=== PATIENT | female | born 1965 | race Caucasian/White ===

== ENCOUNTER 2017-08-20 09:19 | Emergency (ER) | payer BC ==
[2017-08-20 09:23] VITALS: BP 135/68; PULSE 87; RESP 20; TEMP 97.5
--- NOTE | 2017-08-20 09:45 | XR ---
EXAMINATION TYPE: XR elbow complete RT DATE OF EXAM: 08/20/2017 COMPARISON: NONE HISTORY: 51-year-old female with pain after fall TECHNIQUE: 3 views FINDINGS: There is very minimal cortical irregularity along the dorsal and radial aspect of the radial neck. Roberts ggests elevation of the anterior fat pad of elbow. No additional acute fracture or dislocation seen. IMPRESSION: 1. Suspicious for a subtle nondisplaced radial neck fracture. 2. Anterior elbow joint effusion.
--- NOTE | 2017-08-20 10:13 | ED ---
General Adult HPI - General Chief complaint: Extremity Injury, Upper Stated complaint: Arm injury Time Seen by Provider: 08/20/17 09:24 Source: patient, RN notes reviewed Mode of arrival: ambulatory Limitations: no limitations - History of Present Illness Initial comments: 51-year-old female presents to the emergency department with a chief complaint of right elbow pain after a fall on the ice yesterday. She states every time she twisted her right arm she notices the discomfort. Patient states she hasn' t had any head injury with this. She states that she keeps the arm still she is feeling much better. Patient was concerned due to her continued symptoms so she thought that she should be evaluated. No history of elbow injury past. Patient denies any recent fever, chills, shortness of breath, chest pain, back pain, abdominal pain, nausea vomiting, numbness or tingling, dysuria or hematuria, constipation or diarrhea, headaches or visual changes, or any other current symptoms. - Related Data Home Medications Medication Instructions Recorded Confirmed Ibuprofen [Motrin] 800 mg PO Q6HR PRN 08/20/17 08/20/17 Rizatriptan Benzoate [Maxalt] 10 mg PO DAILY PRN 08/20/17 08/20/17 Topiramate [Topamax] 50 mg PO DAILY 08/20/17 08/20/17 Allergies Allergy/AdvReac Type Severity Reaction Status Date / Time gatifloxacin [From Tequin] Allergy Unknown Verified 08/20/17 09:41 Review of Systems ROS Statement: Those systems with pertinent positive or pertinent negative responses have been documented in the HPI. ROS Other: All systems not noted in ROS Statement are negative. Past Medical History Additional Past Medical History / Comment(s): migraines History of Any Multi-Drug Resistant Organisms: None Reported Past Surgical History: No Surgical Hx Reported Past Psychological History: No Psychological Hx Reported Smoking Status: Never smoker Past Alcohol Use History: Occasional Past Drug Use History: None Reported General Exam - General Exam Comments Initial Comments: General: The patient is awake and alert, in no distress, and does not appear acutely ill. Neck: The neck is supple, there is no tenderness. Cardiovascular: There is a regular rate and rhythm. No murmur, rub or gallop is appreciated. Respiratory: Lungs are clear to auscultation, respirations are non-labored, breath sounds are equal. No wheezes, stridor, rales, or rhonchi. Musculoskeletal: Sensation intact with 2+ pulses throughout the right upper x- ray. Fund motion of right shoulder. Patient has full range motion of right elbow with pain on supination and pronation. No point bony tenderness noted. Full range of motion of the right wrist. No ecchymosis no skin trauma. Neurological: CN II-XII intact, There are no obvious motor or sensory deficits. Coordination appears grossly intact. Speech is normal. Skin: Skin is warm and dry and no rashes or lesions are noted. Psychiatric: Normal mood and affect. Limitations: no limitations Course Vital Signs 08/20/17 09:21 Temperature 97.5 F L Pulse Rate 87 Respiratory 20 Rate Blood Pressure 135/68 O2 Sat by Pulse 99 Oximetry Procedures - Orthopedic Splinting/Casting Injury #1 Side: right Upper Extremity Injury Location: elbow Upper Extremity Immobilizer: sling/shoulder immobilizer, posterior splint Medical Decision Making - Medical Decision Making 51-year-old female presents for concern for possible radial head fracture. This time she was placed in splint. We give her follow-up dorsal. We discussed return parameters and care and all questions. Patient stated that she understood and she is agreement this plan. All questions have been answered. She will be discharged. - Radiology Data Radiology results: report reviewed, image reviewed Disposition Clinical Impression: Radial head fracture Disposition: HOME SELF-CARE Condition: Stable Instructions: Arm Fracture in Adults (ED) Additional Instructions: Please use medication as discussed. Please follow up with family doctor if symptoms have not improved over the next two days. Please return to the emergency room if your symptoms increase or worsen or for any other concerns. Referrals: Ai White MD [Primary Care Provider] - 1-2 days Russell Hamm DO [Doctor of Osteopathic Medicine] - 1-2 days Time of Disposition: 10:12
== END 2017-08-20 10:24 | disposition home or self-care (01) ==
LOC: EC 09:19
DX: S52.121A Displaced fracture of head of right radius, initial encounter for closed fracture (principal); Z86.69 Personal history of other diseases of the nervous system and sense organs; Z79.899 Other long term (current) drug therapy; Z88.1 Allergy status to other antibiotic agents; W00.0XXA Fall on same level due to ice and snow, initial encounter
CPT/HCPCS: 29105; 99283

== ENCOUNTER 2019-12-16 13:21 | Observation (INO) | payer BC ==
[2019-12-16] MEDS ORDERED: SODIUM CHLORIDE 0.9% 500 ML 500 ML IV ONE (13:44)
[2019-12-16] MEDS ORDERED: SODIUM CHLORIDE 0.9% 1,000 ML IV ONE (13:44)
[2019-12-16 14:16] LABS: Basophils % (A) 0 %; Eosinophils # (A) 0.1 k/uL (0-0.7); Eosinophils % (A) 1 %; HCT 24.6 % (34.0-46.0); HGB 7.8 gm/dL (11.4-16.0); Hypochromasia Slight; Lymphocytes # (A) 2.3 k/uL (1.0-4.8); Lymphocytes % (A) 24 %; MCH 27.2 pg (25.0-35.0); MCHC 31.8 g/dL (31.0-37.0); MCV 85.5 fL (80.0-100.0); Mean Platelet Volume 7.6; Monocytes # (A) 0.3 k/uL (0-1.0); Monocytes % (A) 4 %; Neutrophils # (A) 6.6 k/uL (1.3-7.7); Neutrophils % (A) 70 %; Platelet Count 304 k/uL (150-450); Poikilocytosis Slight; RBC 2.88 m/uL (3.80-5.40); RDW 13.8 % (11.5-15.5); WBC 9.5 k/uL (3.8-10.6)
--- NOTE | 2019-12-16 14:21 | ED ---
Female Urogenital HPI - General Chief complaint: Vaginal Bleeding Stated complaint: ANEMIA Time Seen by Provider: 12/16/19 13:44 Source: patient, family Mode of arrival: ambulatory Limitations: no limitations - History of Present Illness Initial comments: 54-year-old female presenting today for chief complaint of vaginal bleeding 6 weeks. Patient states that she had on-and-off bleeding. Past 6 weeks she stated then more persistent for the past few days. Patient states that she is now bleeding through around 4 pads an hour. Patient states she does experience menorrhagia in the past however it stopped spontaneously however she was advised by her [employer] that she may have to have an ablation. Patient states she has not had vaginal bleeding and in over a year. She states she thought she was postmenopausal. Patient denies any associated pain. Patient does admit to chills palpitation or presyncope pallor of her skin and shortness of breath on exertion. Patient was concerned that she had low hemoglobin. And thus presents emergency department. Patient denies any additional complaints denies any chest pain, nausea, vomiting, vaginal discharge. Patient on arrival pt HR elevated, 130s in triage, 109 while taking history. - Related Data Home Medications Medication Instructions Recorded Confirmed Ibuprofen [Motrin] 800 mg PO Q6HR PRN 08/20/17 08/20/17 Rizatriptan Benzoate [Maxalt] 10 mg PO DAILY PRN 08/20/17 08/20/17 Topiramate [Topamax] 50 mg PO DAILY 08/20/17 08/20/17 Allergies Allergy/AdvReac Type Severity Reaction Status Date / Time gatifloxacin [From Tequin] Allergy Unknown Verified 08/20/17 09:41 Review of Systems ROS Statement: Those systems with pertinent positive or pertinent negative responses have been documented in the HPI. ROS Other: All systems not noted in ROS Statement are negative. Past Medical History Additional Past Medical History / Comment(s): migraines History of Any Multi-Drug Resistant Organisms: None Reported Past Surgical History: No Surgical Hx Reported Past Psychological History: No Psychological Hx Reported Smoking Status: Never smoker Past Alcohol Use History: Occasional Past Drug Use History: None Reported General Exam - General Exam Comments Initial Comments: General: The patient is awake and alert, in no distress Eye: +3 mm pupils are equal, round and reactive to light, extra-ocular movements are intact. No nystagmus. There is normal conjunctiva bilaterally. No signs of icterus. Ears, nose, mouth and throat: There are moist mucous membranes and no oral lesions. Pallor to mucosa of mouth, eyelids Neck: The neck is supple, there is no tenderness or JVD. Cardiovascular: There is a regular rate and rhythm. No murmur, rub or gallop is appreciated. Respiratory: Lungs are clear to auscultation, respirations are non-labored, breath sounds are equal. No wheezes, stridor, rales, or rhonchi. Gastrointestinal: Soft, non-distended, non-tender abdomen without masses or organomegaly noted. There is no rebound or guarding present. Pelvic: mild-moderate dark red blood in vault--no pain. No external lesions, small clots. Musculoskeletal: Normal ROM, no tenderness. Strength 5/5. Sensation intact. Radial pulses equal bilaterally 2+. Neurological: A&O x 3. CN II-XII intact grossly, There are no obvious motor or sensory deficits. Coordination appears grossly intact. Speech is normal. Skin: Skin is warm and dry and no rashes or lesions are noted. Psychiatric: Cooperative, appropriate mood & affect, normal judgment. Limitations: no limitations Course Vital Signs 12/16/19 12/16/19 12/16/19 13:37 14:21 16:22 Temperature 97.8 F Pulse Rate 134 H 101 H Pulse Rate [ 100 Sitting Cook Barbecue] Pulse Rate [ 120 H Standing Cook Barbecue ] Pulse Rate [ 96 Supine Cook Barbecue] Respiratory 18 18 Rate Blood Pressure 133/78 141/74 Blood Pressure 116/67 [Right Arm Sitting] Blood Pressure 114/68 [Right Arm Standing] Blood Pressure 107/58 [Right Arm Supine] O2 Sat by Pulse 100 Oximetry Medical Decision Making - Medical Decision Making 54-year-old female presenting for vaginal bleeding what appears to be consistent with symptomatic anemia. Consult to Gill. He recommended admission q6h CBC, will hold blood products for now. Pt on telemetry. BP stable. Bleeding slowing on PE. Patient agreeable to admission and care plan. - Lab Data Result diagrams: 12/16/19 14:04 12/16/19 14:04 Lab Results 12/16/19 12/16/19 12/16/19 Range/Units 14:04 14:04 14:04 WBC 9.5 (3.8-10.6) k/uL RBC 2.88 L (3.80-5.40) m/uL Hgb 7.8 L (11.4-16.0) gm/dL Hct 24.6 L (34.0-46.0) % MCV 85.5 (80.0-100.0) fL MCH 27.2 (25.0-35.0) pg MCHC 31.8 (31.0-37.0) g/dL RDW 13.8 (11.5-15.5) % Plt Count 304 (150-450) k/uL Neutrophils % 70 % Lymphocytes % 24 % Monocytes % 4 % Eosinophils % 1 % Basophils % 0 % Neutrophils # 6.6 (1.3-7.7) k/uL Lymphocytes # 2.3 (1.0-4.8) k/uL Monocytes # 0.3 (0-1.0) k/uL Eosinophils # 0.1 (0-0.7) k/uL Basophils # 0.0 (0-0.2) k/uL Hypochromasia Slight Poikilocytosis Slight Sodium 137 (137-145) mmol/L Potassium 3.3 L (3.5-5.1) mmol/L Chloride 105 (98-107) mmol/L Carbon Dioxide 22 (22-30) mmol/L Anion Gap 10 mmol/L BUN 14 (7-17) mg/dL Creatinine 0.72 (0.52-1.04) mg/dL Est GFR (CKD-EPI)AfAm >90 (>60 ml/min/1.73 sqM) Est GFR (CKD-EPI)NonAf >90 (>60 ml/min/1.73 sqM) Glucose 105 H (74-99) mg/dL Calcium 8.7 (8.4-10.2) mg/dL Total Bilirubin 0.2 (0.2-1.3) mg/dL AST 22 (14-36) U/L ALT 13 (4-34) U/L Alkaline Phosphatase 61 (38-126) U/L Total Protein 7.1 (6.3-8.2) g/dL Albumin 4.3 (3.5-5.0) g/dL Urine Color Urine Appearance (Clear) Urine pH (5.0-8.0) Ur Specific [place] (1.001-1.035) Urine Protein (Negative) Urine Glucose (UA) (Negative) Urine Ketones (Negative) Urine Blood (Negative) Urine Nitrite (Negative) Urine Bilirubin (Negative) Urine Urobilinogen (<2.0) mg/dL Ur Leukocyte Esterase (Negative) Urine RBC (0-5) /hpf Urine WBC (0-5) /hpf Ur Squamous Epith Cells (0-4) /hpf Urine Mucus (None) /hpf Urine HCG, Qual (Not Detectd) Blood Type O Positive Blood Type Recheck O Pos Bld Type Recheck Status No Antibody Screen NEGATIVE Spec Expiration Date 12/19/2019230312/16/19 12/16/19 Range/Units 15:05 15:05 WBC (3.8-10.6) k/uL RBC (3.80-5.40) m/uL Hgb (11.4-16.0) gm/dL Hct (34.0-46.0) % MCV (80.0-100.0) fL MCH (25.0-35.0) pg MCHC (31.0-37.0) g/dL RDW (11.5-15.5) % Plt Count (150-450) k/uL Neutrophils % % Lymphocytes % % Monocytes % % Eosinophils % % Basophils % % Neutrophils # (1.3-7.7) k/uL Lymphocytes # (1.0-4.8) k/uL Monocytes # (0-1.0) k/uL Eosinophils # (0-0.7) k/uL Basophils # (0-0.2) k/uL Hypochromasia Poikilocytosis Sodium (137-145) mmol/L Potassium (3.5-5.1) mmol/L Chloride (98-107) mmol/L Carbon Dioxide (22-30) mmol/L Anion Gap mmol/L BUN (7-17) mg/dL Creatinine (0.52-1.04) mg/dL Est GFR (CKD-EPI)AfAm (>60 ml/min/1.73 sqM) Est GFR (CKD-EPI)NonAf (>60 ml/min/1.73 sqM) Glucose (74-99) mg/dL Calcium (8.4-10.2) mg/dL Total Bilirubin (0.2-1.3) mg/dL AST (14-36) U/L ALT (4-34) U/L Alkaline Phosphatase (38-126) U/L Total Protein (6.3-8.2) g/dL Albumin (3.5-5.0) g/dL Urine Color Yellow Urine Appearance Clear (Clear) Urine pH 6.0 (5.0-8.0) Ur Specific [place] 1.015 (1.001-1.035) Urine Protein Trace H (Negative) Urine Glucose (UA) Negative (Negative) Urine Ketones Trace H (Negative) Urine Blood Large H (Negative) Urine Nitrite Negative (Negative) Urine Bilirubin Negative (Negative) Urine Urobilinogen <2.0 (<2.0) mg/dL Ur Leukocyte Esterase Trace H (Negative) Urine RBC >182 H (0-5) /hpf Urine WBC 1 (0-5) /hpf Ur Squamous Epith Cells <1 (0-4) /hpf Urine Mucus Rare H (None) /hpf Urine HCG, Qual Not Detected (Not Detectd) Blood Type Blood Type Recheck Bld Type Recheck Status Antibody Screen Spec Expiration Date Disposition Clinical Impression: Anemia, Vaginal bleeding, Pre-syncope, Symptomatic anemia Disposition: ADMITTED IP TO THIS [facility] Condition: Stable Is patient prescribed a controlled substance at d/c from ED?: No Referrals: Ai White MD [Primary Care Provider] - 1-2 days Time of Disposition: 16:26 Decision to Admit Reason: Admit from EC Decision Date: 12/16/19 Decision Time: 16:27
[2019-12-16 14:26] LABS: ALT 13 U/L (4-34); AST 22 U/L (14-36); African American GFR (CKD) >90 (>60 ml/min/1.73 sqM); Albumin 4.3 g/dL (3.5-5.0); Alkaline Phosphatase 61 U/L (38-126); Anion Gap 10 mmol/L; Blood Urea Nitrogen 14 mg/dL (7-17); Calcium 8.7 mg/dL (8.4-10.2); Carbon Dioxide 22 mmol/L (22-30); Chloride 105 mmol/L (98-107); Glucose 105 mg/dL (74-99); Non-African American GFR(CKD) >90 (>60 ml/min/1.73 sqM); Potassium 3.3 mmol/L (3.5-5.1); Sodium 137 mmol/L (137-145); Total Bilirubin 0.2 mg/dL (0.2-1.3); Total Protein 7.1 g/dL (6.3-8.2)
--- NOTE | 2019-12-16 15:24 | US ---
EXAMINATION TYPE: US transvaginal DATE OF EXAM: 12/16/2019 COMPARISON: NONE CLINICAL HISTORY: 6 wks heavy vaginal bleeding. Heavy bleeding and passing large clots per patient TECHNIQUE: Transvaginal (TV). Date of LMP: 10/29/2019 EXAM MEASUREMENTS: Uterus: 9.1 x 7.1 x 5.9 cm Endometrial Stripe: 2.7 cm Left Ovary: 3.2 x 1.9 x 1.9 cm 1. Uterus: Retroverted wnl 2. Endometrium: Thickened with ill defined borders. Heterogenous. No prominent nodules visualized. 3. Right Ovary: Obscured by overlying bowel gas 4. Left Ovary: cystic appearing lesion = 2.2 x 1.6 x 1.5 cm Spectral, color and waveform doppler imaging shows good arterial and venous flow within left ovary. 5. Bilateral Adnexa: wnl 6. Posterior cul-de-sac: no free fluid IMPRESSION: Heterogeneous poorly defined but definitively thickened endometrium. Neoplasm cannot be e xcluded. Further investigation with nonemergent endometrial biopsy advised.
[2019-12-16 15:33] LABS: Appearance,Urine Clear (Clear); Bilirubin,Urine Negative (Negative); Blood,Urine Large (Negative); Color,Urine Yellow; Glucose,Urine (UA) Negative (Negative); Ketones,Urine Trace (Negative); Leukocyte Esterase,Urine Trace (Negative); Mucus,Urine Rare /hpf; Nitrite,Urine Negative (Negative); Protein,Urine Trace (Negative); RBC,Urine >182 /hpf (0-5); Specific Gravity,Urine 1.015 (1.001-1.035); Squamous Epithelial Cell,Urine <1 /hpf (0-4); Urobilinogen,Urine <2.0 mg/dL (<2.0); WBC,Urine 1 /hpf (0-5)
[2019-12-16] MEDS ORDERED: NALOXONE 0.4 MG/ML 1 ML VIAL IV PRN (16:27)
[2019-12-16] MEDS ORDERED: POTASSIUM CHLORIDE ER 10 MEQ TAB.ER.PRT PO STA (17:21)
[2019-12-16] MEDS: SODIUM CHLORIDE 0.9% 1,000 ML IV SCH (18:41)
[2019-12-16] MEDS: SUMAtriptan SUCCINATE 50 MG TAB PO PRN (23:48)
[2019-12-17 00:17] LABS: Basophils % (A) 1 %; Eosinophils # (A) 0.1 k/uL (0-0.7); Eosinophils % (A) 1 %; HCT 20.7 % (34.0-46.0); Hypochromasia Moderate; Lymphocytes # (A) 1.4 k/uL (1.0-4.8); Lymphocytes % (A) 22 %; MCH 26.9 pg (25.0-35.0); MCHC 30.7 g/dL (31.0-37.0); MCV 87.7 fL (80.0-100.0); Mean Platelet Volume 7.6; Monocytes # (A) 0.3 k/uL (0-1.0); Monocytes % (A) 5 %; Neutrophils # (A) 4.5 k/uL (1.3-7.7); Neutrophils % (A) 71 %; Platelet Count 249 k/uL (150-450); RBC 2.36 m/uL (3.80-5.40); WBC 6.4 k/uL (3.8-10.6)
[2019-12-17 00:19] LABS: HGB 6.4 gm/dL (11.4-16.0)
--- NOTE | 2019-12-17 01:44 | P.HPOB ---
History of Present Illness H&P Date: 12/17/19 Chief Complaint: Postmenopausal bleeding: Symptomatic anemia Carmen is a 54-year-old female who relates that she has not had a period in over a year. She was seen by Dr. Tate in August 2018 for a similar bleeding issue. At that time an endometrial biopsy was done revealing possible polyp but no other gross pathology is noted. At that time there was discussion between she and Dr. Tate about a NovaSure ablation but as she stopped bleeding Carmen decided that further therapies were not going to be needed. She is not seen Dr. Tate since then. Approximately 6 weeks ago she relates that she began having heavy bleeding again. She relates that at least 2-3 times a week she bleeds so heavily that she has to change a pad every hour minimum and sometimes as heavy as 2-4 pads per hour for multiple hours in a row. She relates that she did not seek any care or follow-up for her bleeding issue until Saturday when she called our office and she had been scheduled for a follow-up visit next month due to the covid outbreak. She again called our office the following day relates she had some lightheadedness and dizziness and she was advised if that was continuing that she would need to report to the emergency room where she came today. Earlier today she says she was driving from [place] and had stopping as her bleeding was so heavy that she bled through her clothing and at that point as she was going through 4 pads per hour came to the emergency room. Please see emergency room information for care in the ER. I was notified by the emergency room physician that her he will was 7.8 that she had a grossly thickened endometrium. However, her bleeding had stopped. At that point she had no active bleeding and she was admitted for IV hydration and monitoring with expectation that a D&C would be done in the next day or 2 depending on her symptoms. Vital signs were stable she was afebrile. Discussion with the nurse earlier this evening on whether anything else would need to be done tonight revolved around repeating a CBC, and as patient was very hungry and had a headache that she attributed partly to lack of food 8 diet was ordered at the patient request as no emergent D&C seemed needed with stable vital signs and no bleeding had been noted throughout the afternoon and evening. I was notified at 00:30 that her hemoglobin had come back at 6.4 and at that point came immediately into evaluate her myself. She is alert and oriented and relates that she actually feels very well her vital signs are stable with a blood pressure 100/70 she is tachycardic with heart rate in the 120s to 130s but laying in bed she relates no other signs or symptoms and has not again had any active bleeding in a number of hours. It is unclear if the initial CBC was done before her active bleeding had stopped and then combined with her hydration that there is a bigger drop than what we would normally expect as her bleeding has essentially stopped. In discussing options with her I offered to do a D&C tonight but she would like to wait until the morning and we have agreed that we will do 2 units of packed red blood cells to try and bolster of her hemoglobin a nd help her hopefully decrease her headache and feel better. Risks of transfusion reviewed. She is nothing by mouth and was made nothing by mouth earlier today as a precaution for needing a D&C tomorrow. Should be noted that I did discuss transfusion with the emergency room physician at the time of her original phone call and they opted not to give blood as her hemoglobin was 7.8 at that time. I did discuss with her and review what a dilation and curettage was with or without hysteroscopy. Risks/benefits reviewed in complete detail and all questions were answered for her. I did explain the need for urgent surgery to try and both limit her bleeding moving forward as well as get a tissue sample to rule out hyperplasia/cancer. Past medical history is otherwise generally unremarkable, she does have a history of migraines Past surgical history includes carpal tunnel release Family history noncontributory Social history assume for occasional wine use otherwise she denies illicit drugs or tobacco ALLERGIES togatifloxacin On physical exam again vital signs currently are stable and she is afebrile. Heart tachycardic otherwise has been regular lungs clear Minimal exam is done as she is not bleeding at this time and I would prefer to not cause her to begin having heavy bleeding at 2 in the morning with limited resources to bring the operative team in should she begin hemorrhaging again. Assessment postmenopausal bleeding with symptomatic anemia Plan type and cross transfusion of 2 units packed red blood cells with expectation for likely D&C in the a.m. today Past Medical History Additional Past Medical History / Comment(s): migraines History of Any Multi-Drug Resistant Organisms: None Reported Past Surgical History: No Surgical Hx Reported Smoking Status: Never smoker - Past Family History Father Family Medical History: No Reported History Medications and Allergies Home Medications Medication Instructions Recorded Confirmed Type Rizatriptan Benzoate [Maxalt] 10 mg PO DAILY PRN 08/20/17 12/16/19 History Topiramate [Topamax] 50 mg PO DAILY 08/20/17 12/16/19 History Allergies Allergy/AdvReac Type Severity Reaction Status Date / Time gatifloxacin [From Tequin] Allergy Unknown Verified 12/16/19 16:58 Exam Osteopathic Statement: *. No significant issues noted on an osteopathic structural exam other than those noted in the History and Physical/Consult. Vital Signs Temp Pulse Pulse Pulse Pulse Pulse Resp 12/16/19 23:34 103 H 12/16/19 21:36 98.6 F 113 H 16 12/16/19 18:09 102 H 12/16/19 18:08 98.3 F 12 12/16/19 17:07 105 H 12/16/19 16:22 100 120 H 96 12/16/19 14:21 101 H 18 12/16/19 13:37 97.8 F 134 H 18 BP BP BP BP Pulse Ox 12/16/19 23:34 101/62 12/16/19 21:36 94/59 99 12/16/19 18:09 12/16/19 18:08 129/58 99 12/16/19 17:07 12/16/19 16:22 116/67 114/68 107/58 12/16/19 14:21 141/74 12/16/19 13:37 133/78 100 Intake and Output 12/16/19 12/16/19 12/17/19 14:59 22:59 06:59 Other: Voiding Method Toilet # Voids 1 Weight 74.389 kg 74.389 kg Results Result Diagrams: 12/16/19 23:21 12/16/19 14:04 Abnormal Lab Results - Last 24 Hours (Table) 12/16/19 12/16/19 12/16/19 Range/Units 14:04 14:04 14:04 RBC 2.88 L (3.80-5.40) m/uL Hgb 7.8 L (11.4-16.0) gm/dL Hct 24.6 L (34.0-46.0) % MCHC (31.0-37.0) g/dL Potassium 3.3 L (3.5-5.1) mmol/L Glucose 105 H (74-99) mg/dL Urine Protein (Negative) Urine Ketones (Negative) Urine Blood (Negative) Ur Leukocyte Esterase (Negative) Urine RBC (0-5) /hpf Urine Mucus (None) /hpf Crossmatch See Detail 12/16/19 12/16/19 Range/Units 15:05 23:21 RBC 2.36 L (3.80-5.40) m/uL Hgb 6.4 L* (11.4-16.0) gm/dL Hct 20.7 L (34.0-46.0) % MCHC 30.7 L (31.0-37.0) g/dL Potassium (3.5-5.1) mmol/L Glucose (74-99) mg/dL Urine Protein Trace H (Negative) Urine Ketones Trace H (Negative) Urine Blood Large H (Negative) Ur Leukocyte Esterase Trace H (Negative) Urine RBC >182 H (0-5) /hpf Urine Mucus Rare H (None) /hpf Crossmatch
[2019-12-17 03:54] LABS: Basophils % (A) 0 %; Eosinophils # (A) 0.1 k/uL (0-0.7); Eosinophils % (A) 2 %; HCT 23.2 % (34.0-46.0); HGB 7.3 gm/dL (11.4-16.0); Hypochromasia Marked; Lymphocytes # (A) 1.2 k/uL (1.0-4.8); Lymphocytes % (A) 24 %; MCH 28.1 pg (25.0-35.0); MCHC 31.2 g/dL (31.0-37.0); Mean Platelet Volume 7.8; Monocytes # (A) 0.3 k/uL (0-1.0); Monocytes % (A) 5 %; Neutrophils # (A) 3.5 k/uL (1.3-7.7); Neutrophils % (A) 68 %; Platelet Count 225 k/uL (150-450); RBC 2.58 m/uL (3.80-5.40); WBC 5.1 k/uL (3.8-10.6)
[2019-12-17] MEDS: SODIUM CHLORIDE 0.9% 1,000 ML IV SCH ×3 (05:06→20:16)
[2019-12-17] MEDS: TOPIRAMATE 25 MG TAB PO SCH (09:04)
[2019-12-17] MEDS ORDERED: LIDOCAINE 1% (10MG/ML) FOR IV START INTRADERMA PRN (09:55)
[2019-12-17] MEDS ORDERED: ONDANSETRON 4 MG/2 ML VIAL IVP ONE (09:55)
[2019-12-17] MEDS ORDERED: DEXAMETHASONE SOD PHOSPHATE 10 MG/ML 1 ML VIAL IV ONE (09:55)
[2019-12-17] MEDS ORDERED: HYDROmorphone 0.5 MG/0.5 ML SYRINGE IVP PRN (09:55)
[2019-12-17] MEDS ORDERED: LACTATED RINGERS 1,000 ML IV SCH (10:00)
[2019-12-17] MEDS ORDERED: LACTATED RINGERS 1,000 ML IV ONE (12:22)
[2019-12-17] MEDS ORDERED: SCOPOLAMINE 1.5MG/72HR PATCH TRANSDERM ONE (12:42)
[2019-12-17] MEDS ORDERED: MIDAZOLAM 2 MG/2 ML VIAL ONE (13:17)
[2019-12-17] MEDS ORDERED: KETOROLAC 30 MG/ML 1 ML VIAL ONE (13:17)
[2019-12-17] MEDS ORDERED: PROPOFOL 10 MG/ML 20 ML VIAL IV ONE (13:17)
[2019-12-17] MEDS ORDERED: fentaNYL (PF) 50 MCG/ML 2 ML AMP ONE (13:17)
--- NOTE | 2019-12-17 13:48 | P.OP ---
Date of Procedure: 12/17/19 Preoperative Diagnosis: 1. postmenopausal bleeding 2. acute blood loss anemia from vaginal bleeding Postoperative Diagnosis: 1. postmenopausal bleeding 2. acute blood loss anemia from vaginal bleeding Procedure(s) Performed: D&C Anesthesia: ELIDIA Surgeon: Rosalia Tate Estimated Blood Loss (ml): 5 IV fluids (ml): 200 Urine output (ml): 45 Pathology: other (endometrial currettings) Condition: stable Disposition: PACU Indications for Procedure: Please see dictated H&P for details of her admission. This 54-year-old female presented to my office 14 months ago complaining of some vaginal bleeding. I did an endometrial biopsy in the office that showed some secretory endometrium with polyp fragments. She stopped bleeding after this and decided against the D&C, NovaSure ablation that I had advised. About 6 weeks ago she started bleeding again. She contacted my office 3 days ago complaining of some heavy bleeding. Due to coronavirus and was unable to see her for a few weeks. She called back yesterday with complaints of feeling lightheaded and dizzy due to, she was bleeding. I advised that she go to the emergency room which she did. Her hemoglobin was found to be 7, repeat was 6.4 overnight. She has acute blood loss anemia due to her vaginal bleeding. She was given 2 units of packed red blood cells this morning. I consented her for a D&C to help stop the bleeding and to get a tissue diagnosis. Operative Findings: The uterus sounded to 8 cm and has second-degree descensus. There was a large amount of endometrial curettings removed. The surface of the uterus does not feel smooth, there is a possible polyp fragments or submucosal fibroids present. Description of Procedure: Patient is taken the operating room where general anesthesia was obtained without difficulty. She is prepped and draped in normal sterile fashion in dorsal lithotomy position, legs placed in candycane stirrups. Bladder was drained of all urine. Weighted speculum placed in the vagina and the anterior lip the cervix is grasped with single-tooth tenaculum. The uterus sounded to 8 cm. Cervix is dilated to #8 Hegar dilator. Sharp curet was gently used to obtain endometrial curettings. There was a large amount of endometrial curettings. I also used the polyp forceps and the [place] to attempt to remove any polyps that were there. The sharp curet was again used and areas at the fundus and anterior uterus that were noted to have some irregularities, possible polyp fragments or submucosal fibroid. All instruments removed from the vagina. Patient tolerated procedure well. Sponge and instrument counts correct 2. She was taken to recovery in stable condition.
[2019-12-17] MEDS ORDERED: ZOLPIDEM 5 MG TAB PO PRN (14:10)
[2019-12-17] MEDS ORDERED: IBUPROFEN 600 MG TAB PO PRN (14:10)
[2019-12-17] MEDS ORDERED: METOCLOPRAMIDE 5 MG/ML 2 ML VIAL IVP PRN (14:10)
[2019-12-17] MEDS ORDERED: SIMETHICONE 80 MG CHEWABLE PO PRN (14:10)
[2019-12-17] MEDS ORDERED: diphenhydrAMINE 50 MG/ML 1 ML VIAL IVP PRN (14:10)
[2019-12-18 04:52] VITALS: BP 107/63; PULSE 87; RESP 16; TEMP 97.9
[2019-12-18 07:23] LABS: Basophils % (A) 0 %; Eosinophils % (A) 0 %; HCT 25.2 % (34.0-46.0); HGB 7.8 gm/dL (11.4-16.0); Hypochromasia Marked; Lymphocytes # (A) 1.3 k/uL (1.0-4.8); Lymphocytes % (A) 16 %; MCH 28.6 pg (25.0-35.0); MCHC 31.2 g/dL (31.0-37.0); MCV 91.9 fL (80.0-100.0); Mean Platelet Volume 8.3; Monocytes # (A) 0.4 k/uL (0-1.0); Monocytes % (A) 4 %; Neutrophils # (A) 6.1 k/uL (1.3-7.7); Neutrophils % (A) 77 %; Platelet Count 218 k/uL (150-450); Poikilocytosis Slight; RBC 2.74 m/uL (3.80-5.40); RDW 13.9 % (11.5-15.5); WBC 7.9 k/uL (3.8-10.6)
[2019-12-18] MEDS: SUMAtriptan SUCCINATE 50 MG TAB PO PRN (07:53)
[2019-12-18] MEDS: TOPIRAMATE 25 MG TAB PO SCH (07:54)
--- NOTE | 2019-12-18 08:07 | P.DS ---
Providers Date of admission: 12/16/19 16:27 Expected date of discharge: 12/18/19 Attending physician: Gabriel Garland Primary care physician: Ai White - Discharge Diagnosis(es) (1) Acute blood loss anemia Current Visit: Yes Status: Acute (2) Postmenopausal bleeding Current Visit: Yes Status: Acute Hospital Course: 54-year-old female presented to the emergency room complaining of lightheadedness and her heart racing along with heavy vaginal bleeding. Should the bleeding for the last 6 weeks and it got a lot heavier over the last couple days. She was found to be quite anemic in the emergency room and tachycardic. She is admitted for observation and then given 2 units of packed red blood cells. Ultrasound showed that her uterine lining was 1 cm thick. I performed a dilation and curettage yesterday, pathology is pending. Since the D&C her bleeding has subsided. Her hemoglobin is up to 7.8. During his hospital stay the patient did begin using her mother in the ICU at [facility] from an ongoing intestinal issue. She does have mental health resource s, she works at [employer] herself. I'm going to discharge the patient today in stable condition with minimal vaginal bleeding. I want her to follow-up with me next week in the office to go over pathology results. I advised her that if she starts having heavy bleeding again and she is to call me, I am supply and distribution manager all weekend. Patient Condition at Discharge: Stable Plan - Discharge Summary New Discharge Prescriptions: New Ibuprofen [Motrin] 600 mg PO Q6HR PRN tab PRN Reason: Mild Discomfort Continue Topiramate [Topamax] 50 mg PO DAILY Rizatriptan Benzoate [Maxalt] 10 mg PO DAILY PRN PRN Reason: Migraine Headache Discharge Medication List Rizatriptan Benzoate [Maxalt] 10 mg PO DAILY PRN 08/20/17 [History] Topiramate [Topamax] 50 mg PO DAILY 08/20/17 [History] Ibuprofen [Motrin] 600 mg PO Q6HR PRN tab 12/18/19 [Rx] Follow up Appointment(s)/Referral(s): Ai White MD [Primary Care Provider] - 1-2 days Rosalia Tate DO [Doctor of Osteopathic Medicine] - 1 Week Discharge Disposition: HOME SELF-CARE
== END 2019-12-18 10:23 | disposition home or self-care (01) ==
LOC: EC 13:21 → 5NMEDONC 16:27
PROVIDERS: ADMIT Obstetrics & Gynecology; ATTEND Obstetrics & Gynecology
DX: N95.0 Postmenopausal bleeding (principal); D62 Acute posthemorrhagic anemia; G43.909 Migraine, unspecified, not intractable, without status migrainosus; Z79.899 Other long term (current) drug therapy; Z88.1 Allergy status to other antibiotic agents
CPT/HCPCS: 36430; 58120; 96360; 96361; 99285; 36415; 93005; 81025 ×2; 86900; 86901; 88305; 80053; 85025 ×3; 86850; 86920; 81001; 93976; 76830; G0378 ×3; P9016; J2250; J1100; J2405; J3010; J1885; J2704

== ENCOUNTER → 2020-01-20 | Outpatient (CLI) | payer BC ==
[2020-01-20 14:27] LABS: African American GFR (CKD) >90 (>60 ml/min/1.73 sqM); Anion Gap 10 mmol/L; Blood Urea Nitrogen 13 mg/dL (7-17); Calcium 9.5 mg/dL (8.4-10.2); Carbon Dioxide 22 mmol/L (22-30); Chloride 106 mmol/L (98-107); Glucose 81 mg/dL (74-99); Non-African American GFR(CKD) >90 (>60 ml/min/1.73 sqM); Potassium 4.1 mmol/L (3.5-5.1); Sodium 138 mmol/L (137-145)
[2020-01-20 14:40] LABS: Basophils % (A) 0 %; Eosinophils # (A) 0.1 k/uL (0-0.7); Eosinophils % (A) 1 %; HCT 36.6 % (34.0-46.0); HGB 10.6 gm/dL (11.4-16.0); Hypochromasia Marked; Lymphocytes # (A) 1.5 k/uL (1.0-4.8); Lymphocytes % (A) 26 %; MCHC 28.9 g/dL (31.0-37.0); Mean Platelet Volume 7.6; Monocytes # (A) 0.3 k/uL (0-1.0); Monocytes % (A) 5 %; Neutrophils # (A) 3.9 k/uL (1.3-7.7); Neutrophils % (A) 66 %; Platelet Count 257 k/uL (150-450); Poikilocytosis Slight; RBC 4.42 m/uL (3.80-5.40); RDW 15.1 % (11.5-15.5); WBC 5.9 k/uL (3.8-10.6)
[2020-01-20 14:45] LABS: MCV 82.9 fL (80.0-100.0)
== END | disposition home or self-care (01) ==
LOC: LABPAT 12:24
PROVIDERS: ATTEND Obstetrics & Gynecology
DX: Z01.818 Encounter for other preprocedural examination (principal); Z01.810 Encounter for preprocedural cardiovascular examination
CPT/HCPCS: 36415; 80048; 85025

== ENCOUNTER → 2020-01-26 | Outpatient (CLI) | payer BC | END | disposition home or self-care (01) | LOC: LABPAT 08:23 | PROVIDERS: ATTEND Obstetrics & Gynecology | DX: Z01.818 Encounter for other preprocedural examination (principal) ==

== ENCOUNTER 2020-01-28 05:51 | Observation (INO) | payer BC ==
[2020-01-26 15:45] VITALS: BMI 25.5
--- NOTE | 2020-01-27 08:26 | P.HPOB ---
History of Present Illness H&P Date: 01/28/20 Chief Complaint: endomtrial hyperplasia 54 year old presents for total laparoscopic hysterectomy bilateral salpingo- oophorectomy using da Fito and diagnostic cystoscopy. Patient had a D&C recently and was found to have endometrial hyperplasia with atypia. She also had anemia due to how much she was bleeding. Review of Systems All systems: negative Constitutional: Denies chills, Denies fever Eyes: denies blurred vision, denies pain Ears, nose, mouth and throat: Denies headache, Denies sore throat Cardiovascular: Denies chest pain, Denies shortness of breath Respiratory: Denies cough Gastrointestinal: Denies abdominal pain, Denies diarrhea, Denies nausea, Denies vomiting Genitourinary: Denies dysuria, Denies hematuria Musculoskeletal: Denies myalgias Integumentary: Denies pruritus, Denies rash Neurological: Denies numbness, Denies weakness Psychiatric: Denies anxiety, Denies depression Endocrine: Denies fatigue, Denies weight change Past Medical History Additional Past Medical History / Comment(s): migraines, admission in November for heavy vaginal bleeding & low hgb. History of Any Multi-Drug Resistant Organisms: None Reported Past Surgical History: Orthopedic Surgery Additional Past Surgical History / Comment(s): D & C, arthroscopic right knee surg., left wrist surg. Past Anesthesia/Blood Transfusion Reactions: Family History of Problems w/ Anesthesia, Motion Sickness, Postoperative Nausea & Vomiting (PONV) Additional Past Anesthesia/Blood Transfusion Reaction / Comment(s): son had trouble coming out of a surgery from anesthesia & had to be admitted after, no problems w/a prior surgery Smoking Status: Never smoker - Past Family History Father Family Medical History: No Reported History Medications and Allergies Home Medications Medication Instructions Recorded Confirmed Type Rizatriptan Benzoate [Maxalt] 10 mg PO DAILY PRN 08/20/17 01/26/20 History Topiramate [Topamax] 50 mg PO DAILY 08/20/17 01/26/20 History Allergies Allergy/AdvReac Type Severity Reaction Status Date / Time gatifloxacin [From Tequin] Allergy Unknown Verified 01/26/20 15:17 Exam Osteopathic Statement: *. No significant issues noted on an osteopathic st ructural exam other than those noted in the History and Physical/Consult. Intake and Output 01/26/20 01/27/20 01/27/20 22:59 06:59 14:59 Other: Weight 73.936 kg Heart: Regular rate and rhythm Lungs: Clear to auscultation bilaterally Abdomen: Soft, nontender Extremities: Negative Homans sign Assessment and Plan (1) Endometrial hyperplasia without atypia Status: Acute Code(s): N85.00 - ENDOMETRIAL HYPERPLASIA, UNSPECIFIED SNOMED Code(s): 928253390 Plan: 1. Total laparoscopic hysterectomy bilateral salpingo-oophorectomy using da Fito and diagnostic cystoscopy
[~2020-01-28 05:51] MED LIST: DEXAMETHASONE SOD PHOSPHATE 10 MG/ML 1 ML VIAL IV ONE; HYDROmorphone 0.5 MG/0.5 ML SYRINGE IVP PRN; MIDAZOLAM 2 MG/2 ML VIAL IV PRN; ONDANSETRON 4 MG/2 ML VIAL IVP ONE
[2020-01-28] MEDS ORDERED: LIDOCAINE 1% (10MG/ML) FOR IV START INTRADERMA ONE (06:21)
[2020-01-28] MEDS: LACTATED RINGERS 1,000 ML IV SCH ×2 (06:21→15:26)
[2020-01-28] MEDS ORDERED: SCOPOLAMINE 1.5MG/72HR PATCH TRANSDERM ONE (06:25)
[2020-01-28] MEDS ORDERED: SUCCINYLCHOLINE CHLORIDE 100 MG/5 ML SYR IV ONE (07:14)
[2020-01-28] MEDS ORDERED: PROPOFOL 10 MG/ML 20 ML VIAL IV ONE (07:14)
[2020-01-28] MEDS ORDERED: GLYCOPYRROLATE 0.2 MG/ML 2 ML VIAL ONE (07:14)
[2020-01-28] MEDS ORDERED: fentaNYL (PF) 50 MCG/ML 2 ML AMP ONE (07:14)
[2020-01-28] MEDS ORDERED: LIDOCAINE 1% INJ 10MG/ML (20 ML MDV) ONE (07:14)
[2020-01-28] MEDS ORDERED: KETOROLAC 30 MG/ML 1 ML VIAL ONE (07:14)
[2020-01-28] MEDS ORDERED: ROCURONIUM BROMIDE 10 MG/ML 5 ML VIAL IV ONE (07:14)
[2020-01-28] MEDS ORDERED: NEOSTIGMINE 1 MG/ML 10 ML VIAL ONE (07:14)
[2020-01-28] MEDS ORDERED: MIDAZOLAM 2 MG/2 ML VIAL ONE (07:14)
[2020-01-28] MEDS ORDERED: BUPIVACAINE (PF) 0.25% 30 ML VIAL SQ ONE (07:41)
[2020-01-28] MEDS ORDERED: LACTATED RINGERS 1,000 ML IV ONE (08:36)
--- NOTE | 2020-01-28 09:18 | P.OP ---
Date of Procedure: 01/28/20 Preoperative Diagnosis: 1. endometrial hyperplasia without atypia Postoperative Diagnosis: 1. endometrial hyperplasia without atypia Procedure(s) Performed: Total laparoscopic hysterectomy with bilateral salpingo-oophorectomy da Fito and diagnostic cystoscopy Anesthesia: ELIDIA Surgeon: Rosalia Tate Construction Equipment Overhauler #1: Gabriel Garland Estimated Blood Loss (ml): 10 IV fluids (ml): 800 Urine output (ml): 300 Pathology: other (Uterus, cervix, bilateral tubes and ovaries) Condition: stable Disposition: PACU Operative Findings: Uterus sounded to 7 cm. Normal uterus, tubes, ovaries. Description of Procedure: Patient taken the operating room where general anesthesia was obtained without difficulty. She is prepped and draped in normal sterile fashion dorsal lithotomy position, legs placed in the Indra stirrups. Weighted speculum placed in the vagina and the anterior lip the cervix was grasped with single-tooth tenaculum. The uterus sounded to 7 cm and the cervix diameter was 3 cm. The appropriate manipulator tip and ring were placed on the Kasia manipulator. The Kasia manipulator was then placed in the uterus. Oneill catheter was also placed. Attention was then turned to the abdomen and gloves were changed. A 5 mm supraumbilical incision was made the scalpel and a 5 mm optical trocar was placed under direct visualization. 10 cm to the right of this and 2 cm down a 5 mm incision was made and 8 mm da Fito port was placed under direct visualization. Same measurements on the opposite side of the patient's abdomen, the 5 mm incision was made and 8 mm da Fito port was placed under direct visualization. In the left upper quadrant a 10 mm incision was made and a 10 mm optical trocar was placed under direct visualization. The 5 mm optical trocar was then replaced with the 8 mm da Fito camera port. The robot was docked on patient's right side. The camera was introduced and then the monopolar curved scissor and [place] bipolar placed under direct visualization. I broke scrub and went to the physician console. The left infundibulopelvic ligament was cauterized with the [place] bipolar and cut with monopolar curved scissors. The left round ligament was cauterized with the [place] bipolar and cut with monopolar curved scissors. The posterior leaf of the broad ligament was taken down using the monopolar curved scissors. Anterior leaf of the broad ligament was then taken down using the monopolar curved scissors. The uterine artery was cauterized with the [place] bipolar and cut with monopolar curved scissors. The bladder flap was then started using the monopolar curved scissors. Attention was then turned to the right side of the patient's anatomy and the right infundibular pelvic ligament was cauterized with the [place] bipolar and cut with monopolar curved scissors. The right round ligament was cauterized with the [place] bipolar and cut with monopolar curved scissors. Posterior leaf of the broad ligament was taken down using the monopolar curved scissors and the anterior leaf was taken down using the monopolar curved scissors. The uterine artery was cauterized the [place] bipolar cut with monopolar curved scissors. The bladder flap was then finished on this side. Anterior colpotomy was made using the monopolar curved scissors. The rest of the uterus was from the vaginal cuff by following the ring around with the monopolar curved scissors through the uterosacral ligaments back to the anterior portion. Once the uterus and cervix were amputated they were pulled through the vaginal cuff. Hemostasis was assured. The instruments were changed for the Cardier forcep and the evelia suture cut. The vaginal cuff was then closed using O stratafix barbed suture in a running fashion. Hemostasis was again assured and the pelvis was irrigated. All instruments were removed from the abdomen and the robot was undocked. I scrubbed back in to perform a cystoscopy. There were jets from both ureteral orifices. The abdominal incisions were closed with 4-0 Vicryl in a subcuticular fashion. The supraumbilical incision was bleeding and needed a few extra stitches to obtain hemostasis. Patient tolerated the procedure well, sponge and instrument counts correct 2 and she was taken to recovery room in stable condition condition
[2020-01-28] MEDS ORDERED: SIMETHICONE 80 MG CHEWABLE PO PRN (09:59)
[2020-01-28] MEDS ORDERED: diphenhydrAMINE 50 MG/ML 1 ML VIAL IVP PRN (09:59)
[2020-01-28] MEDS ORDERED: METOCLOPRAMIDE 5 MG/ML 2 ML VIAL IVP PRN (09:59)
[2020-01-28] MEDS ORDERED: Acetaminophen-Codeine 300-30mg TAB PO PRN ×2 (09:59)
[2020-01-28] MEDS ORDERED: ONDANSETRON 4 MG/2 ML VIAL IVP PRN (09:59)
[2020-01-28] MEDS: KETOROLAC 30 MG/ML 1 ML VIAL IVP PRN ×2 (13:22→21:54)
[2020-01-29 01:03] VITALS: RESP 16
--- NOTE | 2020-01-29 07:33 | P.DS ---
Providers Date of admission: 01/28/2020 Expected date of discharge: 01/29/20 Attending physician: Rosalia Tate Primary care physician: Ai White - Discharge Diagnosis(es) (1) Endometrial hyperplasia without atypia Current Visit: No Status: Acute (2) History of robot-assisted laparoscopic hysterectomy Current Visit: Yes Status: Acute Hospital Course: Patient presented for total laparoscopic hysterectomy and bilateral salpingo- oophorectomy using da Fito and diagnostic cystoscopy. She underwent this procedure without complication. Postoperatively her pain was well-controlled. She is ambulating voiding without difficulty. She is passing flatus and tolerating regular diet. Denies nausea, vomiting, chest pain, shortness of breath or any calf pain. Her incisions are clean, dry, intact. She will be discharged home today to follow-up with me in 3 weeks. Patient Condition at Discharge: Stable Plan - Discharge Summary Discharge Rx Participant: No New Discharge Prescriptions: New Ibuprofen [Motrin] 600 mg PO Q6HR PRN #30 tab PRN Reason: Mild Pain Or Fever >= 100.5 Acetaminophen-Codeine 300-30mg [Tylenol w/codeine #3] 2 each PO Q6HR PRN #24 tab PRN Reason: Severe Pain No Action Topiramate [Topamax] 50 mg PO DAILY Rizatriptan Benzoate [Maxalt] 10 mg PO DAILY PRN PRN Reason: Migraine Headache Discharge Medication List Rizatriptan Benzoate [Maxalt] 10 mg PO DAILY PRN 08/20/17 [History] Topiramate [Topamax] 50 mg PO DAILY 08/20/17 [History] Acetaminophen-Codeine 300-30mg [Tylenol w/codeine #3] 2 each PO Q6HR PRN #24 tab 01/29/20 [Rx] Ibuprofen [Motrin] 600 mg PO Q6HR PRN #30 tab 01/29/20 [Rx] Follow up Appointment(s)/Referral(s): Rosalia Tate DO [Doctor of Osteopathic Medicine] - 3 Weeks Discharge Disposition: HOME SELF-CARE
[2020-01-29 07:43] LABS: Basophils % (A) 0 %; Eosinophils % (A) 0 %; HCT 33.1 % (34.0-46.0); Hypochromasia Marked; Lymphocytes # (A) 2.2 k/uL (1.0-4.8); Lymphocytes % (A) 28 %; MCH 24.5 pg (25.0-35.0); MCHC 30.2 g/dL (31.0-37.0); Mean Platelet Volume 7.9; Monocytes # (A) 0.4 k/uL (0-1.0); Monocytes % (A) 5 %; Neutrophils # (A) 5.2 k/uL (1.3-7.7); Neutrophils % (A) 66 %; Platelet Count 226 k/uL (150-450); Poikilocytosis Slight; RBC 4.09 m/uL (3.80-5.40); RDW 14.7 % (11.5-15.5); WBC 7.9 k/uL (3.8-10.6)
[2020-01-29 08:37] VITALS: BP 109/69; PULSE 77; TEMP 98.3
== END 2020-01-29 10:39 ==
LOC: OR 05:51 → 6PED 08:38 → OR 23:38 → 6PED 23:38
PROVIDERS: ADMIT Obstetrics & Gynecology; ATTEND Obstetrics & Gynecology
DX: N85.00 Endometrial hyperplasia, unspecified (principal); N83.291 Other ovarian cyst, right side; N83.02 Follicular cyst of left ovary; G43.909 Migraine, unspecified, not intractable, without status migrainosus; Z79.899 Other long term (current) drug therapy; Z88.1 Allergy status to other antibiotic agents; Z84.89 Family history of other specified conditions
CPT/HCPCS: 58571; S2900; 36415; 85025; 86850; 86900; 86901; 88307

== ENCOUNTER → 2020-10-21 | Outpatient (CLI) | payer BC ==
--- NOTE | 2020-10-21 11:56 | MM ---
Reason for exam: screening (asymptomatic). Baseline mammogram. History: Patient is postmenopausal and had first child at age 34. Took hormonal contraceptives for 30 years beginning at age 20. Physical Findings: Nurse did not find any significant physical abnormalities on exam. MG Screening Mammo w CAD Bilateral CC and MLO view(s) were taken. There are scattered fibroglandular densities. There is no discrete abnormality. These results were verbally communicated with the patient and result sheet given to the patient on 10/21/20. ASSESSMENT: Negative, BI-RAD 1 RECOMMENDATION: Routine screening mammogram of both breasts in 1 year.
== END | disposition home or self-care (01) ==
LOC: RADMAMWWP 10:21
PROVIDERS: ATTEND Family Medicine
DX: Z12.31 Encounter for screening mammogram for malignant neoplasm of breast (principal)
CPT/HCPCS: 77067

== ENCOUNTER → 2024-02-20 | Outpatient (CLI) | payer BC ==
--- NOTE | 2024-02-20 12:57 | BD ---
EXAMINATION TYPE: Axial Bone Density DATE OF EXAM: 02/20/2024 CLINICAL HISTORY: 58 years old Female. ICD-10 CODE: Z78.0 ASYMPTOMATIC MENOPAUSAL STA Height: 64.5in Weight: 186lb FRAX RISK QUESTIONS: History of Fracture in Adulthood: yes Secondary Osteoporosis: RISK FACTORS HISTORY OF: MEDICATIONS: EXAM MEASUREMENTS: Bone mineral densitometry was performed using the [employer] System. Bone mineral density as measured about the Lumbar spine is: ----- L1-L4(G/cm2): 1.018 T Score Values are as follows: ----- L1: -1.9 ----- L2: -2.1 ----- L3: -0.7 ----- L4: -1.0 ----- L1-L4: -1.4 Z Score Values are as follows: ----- L1: -1.5 ----- L2: -1.7 ----- L3: -0.3 ----- L4: -0.6 ----- L1-L4: -0.9 First dexa at [facility] Bone mineral density about the R hip (g/cm2): 0.901 Bone mineral density about the L hip (g/cm2): 0.922 T Score values are as follows: -----R Neck: -1.6 -----L Neck: -1.5 -----R Total: -0.8 -----L Total: -0.7 Z Score values are as follows: -----R Neck: -0.8 -----L Neck: -0.8 -----R Total: -0.5 -----L Total: -0.3 First dexa at [facility] FRAX%s: The graph provided illustrates a 13% chance for a major osteoporotic fx and a 1.2% chance for the hips probability for fx in 10 years time. IMPRESSION: Osteopenia (T Score between -2.5 and -1). There is slightly increased risk of fracture and the patient may be considered for treatment. Re-Screen 2-5 years. NOTE: T-SCORE=SD OF THE YOUNG ADULT MEAN.
--- NOTE | 2024-02-23 17:42 | MM ---
Reason for Exam: Screening (asymptomatic). Last mammogram was performed 3 year(s) and 4 month(s) ago. Patient History: Menarche at age 15. First Full-Term at age 34. Late child-bearing (after 30). Left ovary removed at age 54. Right ovary removed at age 54. Hysterectomy at age 54. Postmenopausal. Hormonal Contraceptives for 30 years from age 20 until age 50. Risk Values: Bertha 5 year model risk: 1.7%. NCI Lifetime model risk: 9.6%. Prior Study Comparison: 10/21/2020 Bilateral Screening Mammogram, [facility]. Tissue Density: There are scattered areas of fibroglandular density. Findings: Analyzed By CAD. There is no suspicious group of microcalcifications or new suspicious mass in either breast. Overall Assessment: Negative, BI-RAD 1 Management: Screening Mammogram of both breasts in 1 year. . Patient should continue monthly self-breast exams. A clinical breast exam by your physician is recommended on an annual basis. This exam should not preclude additional follow-up of suspicious palpable abnormalities. Note on Bertha scores and lifetime risk: 1. A Bertha score greater than 3% is considered moderate risk. If this is the case, consider specialist referral to assess eligibility for a risk reducing agent. 2. If overall lifetime risk for the development of breast cancer is 20% or higher, the patient may qualify for future screening with alternating mammogram and breast MRI. Electronically signed and approved by: Merary Truong M.D. Radiologist
== END | disposition home or self-care (01) ==
LOC: RADMAMWWP 10:17
PROVIDERS: ATTEND Family Medicine
DX: Z12.31 Encounter for screening mammogram for malignant neoplasm of breast (principal); Z78.0 Asymptomatic menopausal state; M85.88 Other specified disorders of bone density and structure, other site
CPT/HCPCS: 77067; 77080